=== PATIENT | female | born 1950 | race Caucasian/White ===

== ENCOUNTER 2018-04-11 07:32 | Day surgery (SDC) | payer OTHER ==
[2018-04-11] MEDS ORDERED: MIDAZOLAM 1 MG/ML 2 ML INJ ×2 (09:04)
[2018-04-11] MEDS ORDERED: FENTAnyl 50 MCG/ML VIAL (09:04)
== END 2018-04-11 10:16 | disposition home or self-care (01) ==
LOC: GIL 07:32
DX: Z12.11 Encounter for screening for malignant neoplasm of colon (principal); D12.0 Benign neoplasm of cecum; K57.90 Diverticulosis of intestine, part unspecified, without perforation or abscess without bleeding
CPT/HCPCS: 45380; 88305